=== PATIENT | male | born 1960 | race Caucasian/White ===

== ENCOUNTER 2022-04-26 19:13 | Emergency (ER) | payer BC ==
[~2022-04-26] VITALS: Ht 172.7 cm; Wt 79.4 kg
--- NOTE | 2022-04-26 20:19 | NUR ---
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 METAL SHAVINGS IN EYES. NO PROTECTIVE EYEWEAR OD 20/30, 0S 20/25, BOTH 20/25. PT IS ALERT AND ORIENTED. RR EVEN AND NON LABORED. CONNECTED TO MONITOR
--- NOTE | 2022-04-26 20:30 | NUR ---
Patient discharged to home in stable condition. Written and verbal after care instructions given. Patient verbalizes understanding of instruction.
[2022-04-26 20:40] VITALS: BP 154/86
== END 2022-04-26 20:30 | disposition home or self-care (01) ==
LOC: ER 19:18
DX: T15.02XA Foreign body in cornea, left eye, initial encounter (principal); T15.01XA Foreign body in cornea, right eye, initial encounter; W31.1XXA Contact with metalworking machines, initial encounter; Y93.89 Activity, other specified; Y92.89 Other specified places as the place of occurrence of the external cause; Y99.8 Other external cause status